=== PATIENT | female | born 2000 | race Caucasian/White ===

== ENCOUNTER 2020-09-30 03:11 | Emergency (ER) | payer BC ==
[~2020-09-30] VITALS: Ht 157.5 cm; Wt 52.2 kg
[2020-09-30 04:07] LABS: URINE BILIRUBIN NEGATIVE (Negative); URINE BLOOD NEGATIVE (Negative); URINE CLARITY CLEAR; URINE COLOR YELLOW; URINE GLUCOSE-RANDOM* NEGATIVE (Negative); URINE KETONES NEGATIVE (Negative); URINE LEUKOCYTES-REFLEX NEGATIVE (Negative); URINE NITRITE-REFLEX NEGATIVE (Negative); URINE PROTEIN (DIPSTICK) NEGATIVE (Negative); URINE SPECIFIC GRAVITY <= 1.005 (1.005-1.035); URINE UROBILINOGEN 0.2 E.U./dl (0.2-1.0)
[2020-09-30 04:38] LABS: ABSOLUTE NEUTROPHILS 3.9 thou/uL (1.4-8.2); BASOPHILS 0.7 % (0.0-2.0); EOSINOPHILS 1.1 % (0.0-3.0); HEMATOCRIT 36.1 % (37.0-47.0); HEMOGLOBIN 12.6 gm/dL (12.0-15.0); LYMPHOCYTES 35.9 % (24.0-44.0); MCH 32.9 pg (26.0-34.0); MCHC 34.9 g/dL (28.0-37.0); MCV 94.2 fL (80.0-100.0); MONOCYTES 5.3 % (1.0-8.0); PLATELET COUNT 197 thou/uL (150-400); RBC 3.83 mil/uL (4.20-5.00); RDW 13.1 % (10.5-14.5); WBC 6.9 thou/uL (4.0-11.0)
[2020-09-30 04:46] LABS: ANION GAP 10 mmol/L (7-16); BUN 9 mg/dL (7-18); CALCIUM 8.2 mg/dL (8.5-10.1); CHLORIDE 108 mmol/L (98-107); CO2 25 mmol/L (21-32); CREATININE 0.7 mg/dL (0.6-1.0); GLUCOSE 77 mg/dL (74-106); POTASSIUM 3.5 mmol/L (3.5-5.1); SODIUM 143 mmol/L (136-145)
[2020-09-30 04:56] LABS: ALBUMIN 3.1 g/dL (3.4-5.0); SGOT 16 U/L (15-37); SGPT 16 U/L (14-59); TOTAL BILIRUBIN 0.7 mg/dL (0.2-1.0); TOTAL PROTEIN 6.3 g/dL (6.4-8.2); TROPONIN-I <0.06 ng/mL (<0.06)
[2020-09-30 05:12] VITALS: BP 105/63
--- NOTE | 2020-10-01 07:12 | EKG ---
[address] [address] [place] [address] ELECTROCARDIOGRAM REPORT Name: CECILY VALENCIA Room #: DEP [facility]#: [id number] Admission: 09/30/20 Attend Phys: Discharge: 09/30/20 Date of : [birth year] Report #: [id number] [facility] ED Test Date: 2020-09-30 Test Time: 03:56:15 Pat Name: CECILY VALENCIA Department: Room: Gender: F Guest Services Manager: anny : 2000 Requested By: Damon Luciano Order Number: [id number] MD: Juvenal York Measurements Intervals [place] Rate: 69 P: 64 SC: 147 QRS: 49 QRSD: 87 T: 41 QT: 401 QTc: 430 Interpretive Statements Sinus rhythm Probable left atrial enlargement RSR' in V1 or V2, probably normal variant Borderline T abnormalities, anterior leads Baseline wander in lead(s) V6 No previous ECG available for comparison Electronically Signed On 10-01-2020 7:12:35 CDT by Juvenal York [email or web address] <ELECTRONICALLY SIGNED> By: Juvenal York MD, [facility] 10/01/2012 [id number] Juvenal York MD, FACC /EPI
== END 2020-09-30 05:15 | disposition home or self-care (01) ==
LOC: ER 03:11
PROVIDERS: Emergency Medicine
DX: F41.9 Anxiety disorder, unspecified (principal)